=== PATIENT | female | born 2000 | race Caucasian/White ===

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

== ENCOUNTER 2018-12-28 13:03 | Emergency (ER) | payer OTHER ==
[~2018-12-28] VITALS: Ht 170.2 cm; Wt 65.8 kg
[2018-12-28] MEDS ORDERED: Omeprazole20 M1 PO (13:52)
[2018-12-28] MEDS ORDERED: ALBU90OI INH (13:52)
[2018-12-29] MEDS ORDERED: IBUP600 PO (11:58)
== END 2018-12-28 14:04 | disposition home or self-care (01) ==
LOC: ER 13:03
DX: R05 Cough (principal); K22.8 Other specified diseases of esophagus; Z88.8 Allergy status to other drugs, medicaments and biological substances; F17.290 Nicotine dependence, other tobacco product, uncomplicated
CPT/HCPCS: 99283

== ENCOUNTER 2018-12-29 10:52 | Emergency (ER) | payer OTHER ==
[~2018-12-29] VITALS: Ht 170.2 cm; Wt 63.5 kg
[~2018-12-29 10:52] MED LIST changes: +Omeprazole20 M1 PO
[2018-12-29] MEDS ORDERED: IBUP600 PO (11:58)
== END 2018-12-29 12:20 | disposition home or self-care (01) ==
LOC: ER 10:52
DX: S93.402A Sprain of unspecified ligament of left ankle, initial encounter (principal); S93.602A Unspecified sprain of left foot, initial encounter; X58.XXXA Exposure to other specified factors, initial encounter; Z88.8 Allergy status to other drugs, medicaments and biological substances; Z79.899 Other long term (current) drug therapy; J45.909 Unspecified asthma, uncomplicated; F17.290 Nicotine dependence, other tobacco product, uncomplicated
CPT/HCPCS: 29515; 73610; 73630; 99283-25; L1906

== ENCOUNTER 2019-01-18 10:24 | Emergency (ER) | payer OTHER ==
[~2019-01-18] VITALS: Ht 167.6 cm; Wt 65.8 kg
[2019-01-18] MEDS ORDERED: IBUP600 PO (12:55)
== END 2019-01-18 13:07 | disposition home or self-care (01) ==
LOC: ER 10:24
DX: M94.0 Chondrocostal junction syndrome [Tietze] (principal); R07.2 Precordial pain; F17.200 Nicotine dependence, unspecified, uncomplicated; Z88.8 Allergy status to other drugs, medicaments and biological substances; Z79.899 Other long term (current) drug therapy
CPT/HCPCS: 71046; 93005; 93010; 96372; 99283-25; J1885

== ENCOUNTER 2019-11-26 13:09 | Emergency (ER) | payer OTHER ==
[~2019-11-26] VITALS: Ht 170.2 cm; Wt 59.0 kg
== END 2019-11-26 14:42 | disposition home or self-care (01) ==
LOC: ER 13:09
DX: S67.21XA Crushing injury of right hand, initial encounter (principal); F17.290 Nicotine dependence, other tobacco product, uncomplicated; Z88.8 Allergy status to other drugs, medicaments and biological substances; W23.0XXA Caught, crushed, jammed, or pinched between moving objects, initial encounter
CPT/HCPCS: 73130; 99283-25

== ENCOUNTER → 2021-09-17 | Outpatient (CLI) | payer OTHER | END | disposition home or self-care (01) | LOC: LAB SHORT 13:27 → LAB 13:27 | DX: R82.79 Other abnormal findings on microbiological examination of urine (principal) | CPT/HCPCS: 87086 ==

== ENCOUNTER 2021-10-23 11:19 | Emergency (ER) | payer OTHER ==
[~2021-10-23] VITALS: Ht 170.2 cm; Wt 65.8 kg
[2021-10-23] MEDS ORDERED: HYDR1TAB94 PO (12:55)
== END 2021-10-23 13:40 | disposition home or self-care (01) ==
LOC: ER 11:19
DX: S62.354A Nondisplaced fracture of shaft of fourth metacarpal bone, right hand, initial encounter for closed fracture (principal); S62.346A Nondisplaced fracture of base of fifth metacarpal bone, right hand, initial encounter for closed fracture; F17.290 Nicotine dependence, other tobacco product, uncomplicated; W18.43XA Slipping, tripping and stumbling without falling due to stepping from one level to another, initial encounter; Z88.8 Allergy status to other drugs, medicaments and biological substances
CPT/HCPCS: 73130; 81000; A9270

== ENCOUNTER → 2024-04-17 | Outpatient (CLI) | payer OTHER ==
[~2024-04-17] MED LIST changes: +HYDR1TAB94 PO
== END | disposition home or self-care (01) ==
LOC: LAB 14:18 → LAB SHORT 14:18
DX: O09.893 Supervision of other high risk pregnancies, third trimester (principal); O09.93 Supervision of high risk pregnancy, unspecified, third trimester
CPT/HCPCS: 87081; 87150

== ENCOUNTER 2024-05-15 07:51 | Inpatient (IN) | payer OTHER ==
[~2024-05-15] VITALS: Ht 170.2 cm; Wt 95.0 kg
[2024-05-15] VITALS (40 sets, daily range): BP systolic 109–169; BP diastolic 55–97
[2024-05-15] MEDS ORDERED: Calcium Carbonate 500 MG Tab Chew PO SCH (09:30)
[2024-05-15] MEDS ORDERED: Misoprostol 200 MCG Tab PR PRN ×2 (09:30→17:25)
[2024-05-15] MEDS ORDERED: Oxytocin 10 Unit / ML Vial IM PRN (09:30)
[2024-05-15] MEDS ORDERED: Lactated Ringer's 1,000 ML IV PRN (09:30)
[2024-05-15] MEDS ORDERED: Lactated Ringer's 1,000 ML IV SCH ×3 (09:30→17:25)
[2024-05-15] MEDS ORDERED: FentaNYL Citrate 50 MCG/ML 2 ML Injection IV PRN (09:30)
[2024-05-15] MEDS ORDERED: ePHEDrine Sulfate 50 MG/ML 1ML Injection XX PRN (09:30)
[2024-05-15] MEDS ORDERED: OXYTOCIN/RINGER'S LACTATE 500 ML IV PRN (09:30)
[2024-05-15] MEDS ORDERED: Carboprost Tromethamine 250 MCG/ML 1ML Amp IM PRN ×2 (09:30→17:25)
[2024-05-15] MEDS ORDERED: Ondansetron HCl 2 MG / ML 2ML Vial IV PRN (09:30)
[2024-05-15] MEDS ORDERED: Misoprostol 200 MCG Tab BC PRN (09:30)
[2024-05-15] MEDS ORDERED: Methylergonovine Maleate 0.2MG / ML 1ML Amp IM PRN ×2 (09:30→17:25)
[2024-05-15] MEDS ORDERED: FentaNYL 2mcg/ml-Bup 0.1% Epd 250 ML EPI PRN (09:30)
[2024-05-15] MEDS ORDERED: Acetaminophen 500 MG Tab PO PRN (09:30)
[2024-05-15] MEDS ORDERED: Tranexamic Acid 1,000 MG in NS 100 ML IV SCH (09:40)
[2024-05-15] MEDS ORDERED: PRENATAL TABLE1 EAC2 PO (09:40)
[2024-05-15 10:04] LABS: BASOPHILS ABSOLUTE AUTO 0.03 K/mm3 (0.00-0.23); BASOPHILS PERCENT AUTO 0 % (0-2); EOSINOPHILS ABSOLUTE AUTO 0.18 K/mm3 (0.00-0.68); EOSINOPHILS PERCENT AUTO 1 % (0-6); Hematocrit 37.1 % (33.0-51.0); IMMATURE GRAN ABSOLUTE AUTO 0.08 K/mm3 (0.00-0.10); IMMATURE GRAN PERCENT AUTO 1 % (0-1); LYMPHOCYTES ABSOLUTE AUTO 1.62 K/mm3 (0.84-5.20); LYMPHOCYTES PERCENT AUTO 10 % (21-46); MONOCYTES ABSOLUTE AUTO 1.09 K/mm3 (0.16-1.47); MONOCYTES PERCENT AUTO 7 % (4-13); Mean Corpuscular HGB 26.1 pg (26.0-34.0); Mean Corpuscular HGB Conc 32.3 g/dL (31.5-36.5); Mean Corpuscular Volume 81 fL (80-100); NEUTROPHILS ABSOLUTE AUTO 13.75 K/mm3 (1.96-9.15); NEUTROPHILS PERCENT AUTO 82 % (41-73); Platelet Count 308 K/mm3 (150-400); RDW Coefficient Variation 14.6 % (11.7-14.2); RDW Standard Deviation 42.5 fL (35.1-46.3); Red Blood Cell Count 4.59 M/mm3 (3.80-5.20); White Blood Cell Count 16.75 K/mm3 (4.00-11.30)
[2024-05-15] MEDS ORDERED: OXYTOCIN/RINGER'S LACTATE 500 ML IV SCH (12:50)
[2024-05-15] MEDS ORDERED: Ibuprofen 400 MG Tab PO PRN (17:20)
[2024-05-15] MEDS ORDERED: Ketorolac Tromethamine 30mg Vial IV PRN (17:20)
[2024-05-15] MEDS ORDERED: Witch Hazel/Glycerin PADS TOP PRN (17:20)
[2024-05-15] MEDS ORDERED: Benzocaine Topical Anesthetic Spray 60GM TOP PRN (17:20)
[2024-05-15] MEDS ORDERED: FLU VACC TS2024-25(6MOS UP)/PF 45 MCG/0.5 ML SYRINGE IM SCH (17:25)
[2024-05-15] MEDS ORDERED: Docusate Sodium 100 MG Cap PO PRN (17:25)
[2024-05-16 03:18] VITALS: BP 127/76
[2024-05-16] MEDS ORDERED: Prenatal Vit/FE Fumarate/FA 1 Tab PO SCH (09:00)
[2024-05-16 10:45] VITALS: BP 118/56
[2024-05-16] MEDS ORDERED: Measles/Mumps/Rubella Vaccine 0.5 ML Vial SC ONE (11:25)
[2024-05-16 11:27] VITALS: BP 114/67
[2024-05-16 15:46] VITALS: BP 135/82
[2024-05-16 17:45] VITALS: BP 133/86
[2024-05-16] MEDS ORDERED: Witch Hazel/Glycerin PADS TOP ONE (17:50)
--- NOTE | 2024-05-16 18:25 | NUR ---
D/C HOME WITH BABY
== END 2024-05-16 18:30 | disposition home or self-care (01) | DRG 807 ==
LOC: OBS 07:51 → BC 07:53 → OBS 09:22 → BC 20:27
PROVIDERS: ADMIT Obstetrics & Gynecology
PROC: 10E0XZZ Delivery of Products of Conception, External Approach (ICD-10-PCS; principal; 2024-05-15)
PROC: 0KQM0ZZ Repair Perineum Muscle, Open Approach (ICD-10-PCS; 2024-05-15)
PROC: 00HU33Z Insertion of Infusion Device into Spinal Canal, Percutaneous Approach (ICD-10-PCS; 2024-05-15)
PROC: 3E0R3BZ Introduction of Anesthetic Agent into Spinal Canal, Percutaneous Approach (ICD-10-PCS; 2024-05-15)
PROC: 10907ZC Drainage of Amniotic Fluid, Therapeutic from Products of Conception, Via Natural or Artificial Opening (ICD-10-PCS; 2024-05-15)
DX: O99.344 Other mental disorders complicating childbirth (principal); Z37.0 Single live birth; F41.8 Other specified anxiety disorders; Z3A.39 39 weeks gestation of pregnancy; O70.1 Second degree perineal laceration during delivery; F90.9 Attention-deficit hyperactivity disorder, unspecified type; Z88.8 Allergy status to other drugs, medicaments and biological substances; Z79.899 Other long term (current) drug therapy
CPT/HCPCS: 36415; 51702; 59025; 85025; 86850; 86900; 86901; 90471; 90707; 99214; A9270; J1885; J2405; J2590; J3010; J7120